=== PATIENT | female | born 1945 | race African-American/Black ===

== ENCOUNTER 2024-05-07 17:15 | Emergency (ER) | payer BC ==
[~2024-05-07] VITALS: Ht 172.7 cm; Wt 72.6 kg
[2024-05-07] MEDS ORDERED: LIDOCAINE 1%-EPI 1:100,000 20 ML VIAL ONE (17:43)
[2024-05-07] MEDS ORDERED: ACETAMINOPHEN ES 500 MG TABLET ONE (17:44)
[2024-05-07] MEDS: ACETAMINOPHEN ES 500 MG TABLET PO ONE (17:47)
[2024-05-07] MEDS: LIDOCAINE 1%-EPI 1:100,000 50 ML VIAL IJ ONE (17:53)
[2024-05-07 19:57] VITALS: BP 146/92; TEMP 98; O2SAT 99
== END 2024-05-07 19:57 | disposition home or self-care (01) ==
LOC: ER 17:23
DX: S01.511A Laceration without foreign body of lip, initial encounter (principal); S09.90XA Unspecified injury of head, initial encounter; I10 Essential (primary) hypertension; W10.1XXA Fall (on)(from) sidewalk curb, initial encounter; Y93.89 Activity, other specified; Y92.89 Other specified places as the place of occurrence of the external cause; Y99.8 Other external cause status
CPT/HCPCS: 99284; 72125; 70450; 70486; J3490 ×2; A6403